=== PATIENT | female | born 1995 | race Caucasian/White ===

== ENCOUNTER 2016-12-17 16:15 | Emergency (ER) | payer SELFPAY ==
[2016-12-17 16:25] VITALS: BP 128/90
--- NOTE | 2016-12-17 16:58 | UC ---
UC General HPI - HPI Summary HPI Summary: complaint of jaw pain that started 3 months ago started a muscle relaxer which worked for over 1 month never followed up with PCP -but owes co-pay this flare up started 4 days ago pain in right side of jaw took some tylenol without relief pain increases with movement of her jaw, chewing and when she wakes up in the morning - History of Current Complaint Chief Complaint: UCUpperExtremity Stated Complaint: JAW PAIN Time Seen by Provider: 12/17/16 16:48 Hx Obtained From: Patient Associated Signs & Symptoms: Positive: Headache - Allergy/Home Medications Allergies/Adverse Reactions: Allergies Allergy/AdvReac Type Severity Reaction Status Date / Time Latex Allergy Rash And Verified 12/17/16 16:25 Itching PMH/Surg Hx/FS Hx/Imm Hx Previously Healthy: Yes Endocrine History Of: Denies: Thyroid Disease Cardiovascular History Of: Denies: Cardiac Disorders Respiratory History Of: Denies: Asthma Psychological History Of: Reports: Anxiety, Depression, Bipolar Disorder - Surgical History Surgical History: Yes Surgery Procedure, Year, and Place: appy age 6. Dental - Family History Known Family History: Positive: Hypertension Negative: Cardiac Disease, Diabetes - Social History Occupation: Employed Full-time Alcohol Use: Rare Substance Use Type: Marijuana Substance Use Comment - Amount & Last Used: occasionally Smoking Status (MU): Light Every Day Tobacco Smoker Type: Cigarettes Household Exposure Type: Cigarettes Cessation Counseling: Patient Advised to Stop Review of Systems Constitutional: Negative Skin: Negative Eyes: Negative ENT: Other - jaw pain Respiratory: Negative Cardiovascular: Negative Gastrointestinal: Negative Genitourinary: Negative Motor: Negative Neurovascular: Negative Musculoskeletal: Negative Neurological: Negative Psychological: Negative All Other Systems Reviewed And Are Negative: Yes Physical Exam Triage Information Reviewed: Yes Appearance: Pain Distress, Thin Vital Signs: Initial Vital Signs Temp 98.4 F 12/17/16 16:20 Pulse 84 12/17/16 16:20 Resp 18 12/17/16 16:20 BP 128/90 12/17/16 16:20 Pulse Ox 100 12/17/16 16:20 Vital Signs Reviewed: Yes Eyes: Positive: Conjunctiva Clear ENT: Positive: Pharynx normal, TMs normal. Negative: Nasal congestion Dental: Positive: Other: - TMJ pain with movement. Negative: Gross Decay/ Caries @, Dental Fracture @, Abscess @ Neck: Positive: No Lymphadenopathy Respiratory: Positive: Lungs clear, Normal breath sounds, No respiratory distress Cardiovascular: Positive: RRR, No Murmur Abdomen Description: Positive: Nontender, Soft Bowel Sounds: Positive: Present Musculoskeletal: Positive: No Edema Neurological: Positive: Alert Psychological Exam: Normal Skin Exam: Normal Course/Dx - Course Course Of Treatment: will continue muscle relaxer until she can get followup with PCP - Differential Dx - Multi-Symptom Differential Diagnoses: Other - dentral caries, fractured tooth, TMJ Provider Diagnoses: TMJ Discharge - Discharge Plan Condition: Stable Disposition: HOME Prescriptions: Cyclobenzaprine TAB* [Flexeril TAB*] 10 mg PO BEDTIME #30 tab Patient Education Materials: Temporomandibular Disorder (ED) Additional Instructions: start taking flexeril QHS do not operate heavy machinery or drink alcohol while on flexeril continue to wear mouthguard at night take acetaminophen or ibuprofen for pain as needed make followup appt with primary care physician for followup
== END 2016-12-17 17:10 | disposition home or self-care (01) ==
LOC: UCEAST 16:15
DX: M26.609 Unspecified temporomandibular joint disorder, unspecified side (principal); R51 Headache; F12.90 Cannabis use, unspecified, uncomplicated; F17.210 Nicotine dependence, cigarettes, uncomplicated
CPT/HCPCS: 99212; G0463

== ENCOUNTER 2017-05-06 13:15 | Emergency (ER) | payer BC, OTHER ==
[2017-05-06 15:16] VITALS: BP 124/54
--- NOTE | 2017-05-06 18:59 | ED ---
Stephanie Davis Edward, scribed for Jono Bolanos MD on 05/06/17 at 1417 . Syncope/Near Syncope - HPI Summary HPI Summary: A 21 y/o female presents to ED s/p syncopal episode with LOC at work. Patient is 19 weeks , and this is her first . Last seen by OB-ASSET PROTECTION DETECTIVE at 15 weeks. Pt denies injury during syncopal episode as her coworker caught her as she fell. 3rd episode over the past 3 days; previous 2x occurred at home. 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 PMHx: anxiety, but is anxiety med non- compliant since the . - History Of Current Complaint Chief Complaint: EDSyncope Time Seen by Provider: 05/06/17 13:49 Hx Obtained From: Patient Onset/Duration: Sudden Onset, Resolved Timing: Frequency Of Episodes - 3 times in past 3 days Context: Witnessed - Caught by coworker today., Loss Of Consciousness Activity At Onset: Other - Working. Associated Head Trauma: No Aggravating Factor(s): Other - Heat - Allergies/Home Medications Allergies/Adverse Reactions: Allergies Allergy/AdvReac Type Severity Reaction Status Date / Time Latex Allergy Rash And Verified 05/06/17 14:26 Itching PMH/Surg Hx/FS Hx/Imm Hx Previously Healthy: No Endocrine/Hematology History: Denies: Hx Thyroid Disease Respiratory History: Denies: Hx Asthma Psychiatric History: Reports: Hx Anxiety - Has not taken medications since , Hx Eating Disorder, Hx Depression, Hx Bipolar Disorder - Surgical History Surgery Procedure, Year, and Place: appy age 6. 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 Denies: Traveled Outside the [place] in Last 30 Days - Family History Known Family History: Positive: Hypertension Negative: Cardiac Disease, Diabetes - Social History Occupation: Employed Full-time Lives: Alone Alcohol Use: Rare Hx Substance Use: Yes Substance Use Type: Reports: Marijuana Substance Use Comment - Amount & Last Used: occasionally Hx Tobacco Use: Yes Smoking Status (MU): Light Every Day Tobacco Smoker Type: Cigarettes Review of Systems Constitutional: Negative Negative: Fever Eyes: Negative ENT: Negative Cardiovascular: Negative Respiratory: Negative Gastrointestinal: Negative Genitourinary: Negative Musculoskeletal: Negative Skin: Negative Positive: Syncope - 3 times in past 3 days Psychological: Normal All Other Systems Reviewed And Are Negative: Yes Physical Exam Triage Information Reviewed: Yes Vital Signs On Initial Exam: Initial Vitals Temp Pulse Resp BP Pulse Ox 98.7 F 88 17 130/84 100 05/06/17 13:16 05/06/17 13:16 05/06/17 13:16 05/06/17 13:16 05/06/17 13:16 Vital Signs Reviewed: Yes Appearance: Positive: Well-Appearing, No Pain Distress Skin: Positive: Warm, Skin Color Reflects Adequate Perfusion - FLUSHED, Dry Head/Face: Positive: Normal Head/Face Inspection Eyes: Positive: Normal ENT: Positive: Normal ENT inspection Neck: Positive: Supple, Nontender Respiratory/Lung Sounds: Positive: Clear to Auscultation, Breath Sounds Present Cardiovascular: Positive: RRR. Negative: Murmur Abdomen Description: Positive: Nontender, Soft, Other: - GRAVID BELLY Bowel Sounds: Positive: Present Musculoskeletal: Positive: Normal Neurological: Positive: Normal Psychiatric: Positive: Normal, Affect/Mood Appropriate Diagnostics - Vital Signs Vital Signs Temp Pulse Resp BP Pulse Ox 05/06/17 13:16 98.7 F 88 17 130/84 100 - Laboratory Lab Statement: Any lab studies that have been ordered have been reviewed, and results considered in the medical decision making process. - EKG 14:09 EKG Interpretation: Normal Sinus Rhythm Re-Evaluation - Re-Evaluation 14:55 Re-Evaluation Time: 14:55 Course/Dx Course Of Treatment: Ofelia is close to her third trimester (although less than 21 weeks) and has been having some faiinting spells especially when she gets hot. Unfortunately she works in a hot kitchen. She was without C/O on arrival and her exam was fine. We talked about vagal episodes and the importance of lying on her side in advanced . - Diagnoses Provider Diagnoses: Vaso vagal episode, with complication Discharge - Discharge Plan Condition: Stable Disposition: HOME Patient Education Materials: Syncope (ED) Referrals: Hima Gifford MD [Primary Care Provider] - 3 Days (Please follow up in 2-3 days ) Additional Instructions: When feeling faint, lie on either side until feelings pass. The documentation as recorded by the Stephanie viera Edward accurately reflects the service I personally performed and the decisions made by , Jono Bolanos MD.
== END 2017-05-06 15:08 | disposition home or self-care (01) ==
LOC: ED 13:15
DX: O26.92 Pregnancy related conditions, unspecified, second trimester (principal); R55 Syncope and collapse; F17.210 Nicotine dependence, cigarettes, uncomplicated; Z3A.19 19 weeks gestation of pregnancy
CPT/HCPCS: 93005; 99283

== ENCOUNTER 2017-05-14 09:17 | Emergency (ER) | payer BC ==
[2017-05-14] MEDS ORDERED: NS 0.9% 1000 ML* 1,000 ML IV ONE (10:01)
[2017-05-14 10:36] LABS: Hematocrit 33 % (35-47); Hemoglobin 11.4 g/dl (12.0-16.0); Mean Corpuscular HGB Conc 34 g/dl (31-36); Mean Corpuscular Hemoglobin 32 pg (27-31); Mean Corpuscular Volume 92 fL (80-97); Mean Platelet Volume 8 um3 (7.4-10.4); Red Blood Count 3.61 10^6/ul (4.0-5.4); Red Cell Distribution Width 14 % (10.5-15); White Blood Count 8.5 10^3/ul (3.5-10.8)
[2017-05-14 10:58] LABS: ALT 10 U/L (7-52); AST 10 U/L (13-39); Albumin 3.6 g/dL (3.2-5.2); Alkaline Phosphatase 41 U/L (34-104); Blood Urea Nitrogen 4 mg/dL (6-24); C Reactive Protein 7.25 mg/L (< 5.00); CO2 Carbon Dioxide 24 mmol/L (22-32); Calcium 8.6 mg/dL (8.6-10.3); Chloride 122 mmol/L (101-111); EGFR African American 198.4 (>60); EGFR Non-African American 154.3 (>60); Globulin 2.4 g/dL (2-4); Glucose 82 mg/dL (70-100); Lipase < 10 U/L (11.0-82.0); Potassium 3.9 mmol/L (3.5-5.0)
[2017-05-14 11:21] LABS: Anion Gap 7 mmol/L (2-11); Sodium 138 mmol/L (133-145)
[2017-05-14 13:16] LABS: Urine Bilirubin Negative (Negative); Urine Glucose Negative (Negative); Urine Nitrite Negative (Negative)
[2017-05-14 13:23] VITALS: BP 122/64
--- NOTE | 2017-05-14 14:22 | ED ---
Radha Davis Salem, scribed for Kaleb Tyson MD on 05/14/17 at 1111 . Abdominal Pain/Female - HPI Summary HPI Summary: Patient is a 21 y/o F (21 weeks ) who presents to the ED with abd pain, primarily right sided, since 3 days ago. She reports bloody diarrhea and cramping that does not correspond with onset of D. Most recent D was this morning and it was bloody (she typically has 2/day, but only its only been bloody 3 times). She also reports a headache, loss of appetite, and nausea in the morning, but denies fever, vaginal bleeding, or any pain. Pt denies any recent travel or PO intake of atypical foods. Pt states that she can still feel her baby in her abd and she reports AB negative blood type. - History of Current Complaint Chief Complaint: EDAbdPain Stated Complaint: 21WKS PREG/BLOOD IN STOOL Time Seen by Provider: 05/14/17 10:21 Hx Obtained From: Patient, Family/Calibration Tester Hx Last Menstrual Period: 11/20/16 Onset/Duration: Gradual Onset, Lasting Days, Still Present Timing: Intermittent Episode Lasting Severity Initially: Moderate Severity Currently: Moderate Pain Intensity: 2 Pain Scale Used: 0-10 Numeric Location: Discrete At: RUQ, Discrete At: RLQ Radiates: No Character: Cramping Aggravating Factor(s): Nothing Alleviating Factor(s): Nothing Associated Signs and Symptoms: Positive: Negative Allergies/Adverse Reactions: Allergies Allergy/AdvReac Type Severity Reaction Status Date / Time Latex Allergy Rash And Verified 05/14/17 09:19 Itching PMH/Surg Hx/FS Hx/Imm Hx Endocrine/Hematology History: Denies: Hx Thyroid Disease Respiratory History: Denies: Hx Asthma Psychiatric History: Reports: Hx Anxiety - Has not taken medications since , Hx Eating Disorder, Hx Depression, Hx Bipolar Disorder - Surgical History Surgery Procedure, Year, and Place: appy age 6. 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 Negative: Cardiac Disease, Diabetes - Social History Alcohol Use: None Alcohol Amount: none since Hx Substance Use: Yes Substance Use Type: Reports: Marijuana Substance Use Comment - Amount & Last Used: occasionally Hx Tobacco Use: Yes Smoking Status (MU): Light Every Day Tobacco Smoker Type: Cigarettes Review of Systems Positive: Other - No pain. . Negative: Fever Positive: Abdominal Pain, Diarrhea - Bloody. , Nausea, Other - Loss of appetite. Genitourinary: Other - No vaginal bleeding. Neurological: Other - Pt has been dizzy for 2 weeks. Was seen in ED last week and followed up with TAILOR'S AIDE. Positive: Headache All Other Systems Reviewed And Are Negative: Yes Physical Exam - Summary Physical Exam Summary: The patient is well-nourished in no acute distress and in no acute pain. Pale. The skin is warm and dry and skin color reflects adequate perfusion. HEENT: The head is normocephalic and atraumatic. The pupils are equal and reactive. The conjunctivae are clear and without drainage. Neck is supple with full range of motion and non-tender. Respiratory: Chest is non-tender. Lungs are clear to auscultation and breath sounds are symmetrical and equal. Cardiovascular: Hear is regular rate and rhythm. There is no murmur or rub auscultated. Abdomen: The abdomen is soft. Gravid. No reproducible pain. Musculoskeletal: There is no back pain noted. Extremities are non-tender with full range of motion. There is good capillary refill. Neurological: Patient is alert and oriented to person, place and time. The patient has symmetrical motor strength in all four extremities. Psychiatric: The patient has an appropriate affect and does not exhibit any anxiety or depression. Flat affect. Rectal exam: No hemorrhoids, fissure, or skin tags. Internal exam: brownish stool sent to lab for analysis. (Brand Marketing Coordinator: VERO Bennett) Triage Information Reviewed: Yes Vital Signs On Initial Exam: Initial Vitals Temp Pulse Resp BP Pulse Ox 98.1 F 99 20 129/76 100 05/14/17 09:19 05/14/17 09:19 05/14/17 09:19 05/14/17 09:19 05/14/17 09:19 Vital Signs Reviewed: Yes - [place] Coma Scale Coma Scale Total: 15 Diagnostics - Vital Signs Vital Signs Temp Pulse Resp BP Pulse Ox 05/14/17 10:30 78 109/56 99 05/14/17 10:00 77 115/62 98 05/14/17 09:35 81 99 05/14/17 09:34 114/71 05/14/17 09:21 98.1 F 99 20 129/76 99 05/14/17 09:19 98.1 F 99 20 129/76 100 - Laboratory Lab Results: Lab Results 05/14/17 05/14/17 05/14/17 Range/Units 10:24 10:24 10:24 WBC 8.5 (3.5-10.8) 10^3/ul RBC 3.61 L (4.0-5.4) 10^6/ul Hgb 11.4 L (12.0-16.0) g/dl Hct 33 L (35-47) % MCV 92 (80-97) fL MCH 32 H (27-31) pg MCHC 34 (31-36) g/dl RDW 14 (10.5-15) % Plt Count 188 (150-450) 10^3/ul MPV 8 (7.4-10.4) um3 Neut % (Auto) 74.6 (38-83) % Lymph % (Auto) 19.6 L (25-47) % Garden % (Auto) 4.8 (1-9) % Eos % (Auto) 0.6 (0-6) % Baso % (Auto) 0.4 (0-2) % Absolute Neuts (auto) 6.4 (1.5-7.7) 10^3/ul Absolute Lymphs (auto) 1.7 (1.0-4.8) 10^3/ul Absolute Monos (auto) 0.4 (0-0.8) 10^3/ul Absolute Eos (auto) 0.1 (0-0.6) 10^3/ul Absolute Basos (auto) 0 (0-0.2) 10^3/ul Absolute Nucleated RBC 0 10^3/ul Nucleated RBC % 0 Sodium Pending Potassium 3.9 (3.5-5.0) mmol/L Chloride 122 H (101-111) mmol/L Carbon Dioxide 24 (22-32) mmol/L Anion Gap Pending BUN 4 L (6-24) mg/dL Creatinine 0.50 L (0.51-0.95) mg/dL Est GFR ( Amer) 198.4 (>60) Est GFR (Non-Af Amer) 154.3 (>60) BUN/Creatinine Ratio 8.0 (8-20) Glucose 82 (70-100) mg/dL Lactic Acid 0.7 (0.5-2.0) mmol/L Calcium 8.6 (8.6-10.3) mg/dL Total Bilirubin 0.50 (0.2-1.0) mg/dL AST 10 L (13-39) U/L ALT 10 (7-52) U/L Alkaline Phosphatase 41 (34-104) U/L C-Reactive Protein 7.25 H (< 5.00) mg/L Total Protein 6.0 L (6.4-8.9) g/dL Albumin 3.6 (3.2-5.2) g/dL Globulin 2.4 (2-4) g/dL Albumin/Globulin Ratio 1.5 (1-3) Lipase < 10 L (11.0-82.0) U/L Result Diagrams: 05/14/17 10:24 05/14/17 10:24 Lab Statement: Any lab studies that have been ordered have been reviewed, and results considered in the medical decision making process. Re-Evaluation - Re-Evaluation First Eval Re-Evaluation Time: 14:06 Comment: Reviewed results with pt. She was upset. Discussed plan. Abdominal Pain Fem Course/Dx - Course Course Of Treatment: 21 y/o F who presents with abd pain. She reports bloody diarrhea, cramping, a headache, loss of appetite, and nausea in the morning, but denies fever, vaginal bleeding, or any pain. She received fluids in the ED course. Pt will follow up with TAILOR'S AIDE. - Diagnoses Differential Diagnosis: Positive: , Other - gi bleed via history, colitis, infectious diarrhea Provider Diagnoses: with 21 completed weeks gestation, GI bleed via history Discharge - Discharge Plan Condition: Stable Disposition: HOME Patient Education Materials: (ED), Gastrointestinal Bleeding (ED) Referrals: Balta SERRANO,Hima Chavez [Primary Care Provider] - Guillermo Walsh MD [Medical Doctor] - Additional Instructions: Please follow up with your TAILOR'S AIDE. The documentation as recorded by the Radha viera Salem accurately reflects the service I personally performed and the decisions made by , Kaleb Tyson MD.
== END 2017-05-14 14:10 | disposition home or self-care (01) ==
LOC: ED 09:17
DX: K92.2 Gastrointestinal hemorrhage, unspecified (principal); R10.9 Unspecified abdominal pain; Z34.92 Encounter for supervision of normal pregnancy, unspecified, second trimester; R19.7 Diarrhea, unspecified; R11.0 Nausea; R63.0 Anorexia
CPT/HCPCS: 36415; 80053; 81003; 82272; 83605; 83690; 85025; 86140; 96360; 99283

== ENCOUNTER 2017-08-30 12:30 | Inpatient (IN) | payer BC ==
[2017-08-30 13:22] LABS: Hematocrit 38 % (35-47); Hemoglobin 12.8 g/dl (12.0-16.0); Mean Corpuscular HGB Conc 34 g/dl (31-36); Mean Corpuscular Hemoglobin 32 pg (27-31); Mean Corpuscular Volume 95 fL (80-97); Mean Platelet Volume 9 um3 (7.4-10.4); Red Blood Count 4.01 10^6/ul (4.0-5.4); Red Cell Distribution Width 13 % (10.5-15); White Blood Count 8.1 10^3/ul (3.5-10.8)
[2017-08-30 13:37] LABS: Albumin 2.9 g/dL (3.2-5.2); BUN/Creatinine Ratio 14.9 (8-20); Calcium 8.1 mg/dL (8.6-10.3); EGFR African American 126.2 (>60); EGFR Non-African American 98.1 (>60); Globulin 2.5 g/dL (2-4); Total Bilirubin 0.5 mg/dL (0.2-1.0); Total Protein 5.4 g/dL (6.4-8.9); Uric Acid 5.2 mg/dL (2.3-6.6)
[2017-08-30 13:42] LABS: Fibrinogen 300 mg/dL (110.8-404.3)
[2017-08-30] MEDS ORDERED: Labetalol IV* 5 MG/ML 20 ML VIAL ONE (13:56)
[2017-08-30 14:14] LABS: Schistocytes ABSENT
[2017-08-30] MEDS ORDERED: Labetalol IV* 5 MG/ML 20 ML VIAL IV PUSH ONE ×2 (14:41→14:50)
[2017-08-30 14:46] LABS: Urine Bacteria Absent (Absent); Urine Bilirubin Negative (Negative); Urine Glucose Negative (Negative); Urine Nitrite Negative (Negative)
[2017-08-30] MEDS ORDERED: Oxytocin in LR* 20 UNITS/1,000 ML BAG IVPB SCH ×2 (15:00→23:00)
[2017-08-30] MEDS ORDERED: Magnesium Sulf 4 GM/100 ML IV* 4,000 MG/100 ML BAG IVPB ONE ×2 (15:08→15:09)
[2017-08-30] MEDS ORDERED: Betamethasone INJ* 6 MG/ML 5 ML VIAL (30 MG) IM ONE (15:12)
[2017-08-30] MEDS ORDERED: Magnesium Sulfate OB PREMIX* 40 GM/1,000 ML BAG IVPB SCH ×2 (16:00→23:00)
[2017-08-30] MEDS ORDERED: OBEPIDURAL* 250 ML ONE (17:43)
[2017-08-30] MEDS ORDERED: Phenylephrine IV* 40 MCG/ML 10 ML SYRINGE IV PUSH PRN ×2 (18:27)
[2017-08-30] MEDS ORDERED: Sodium Citrate/Citric Acid* 15 ML UDC PO PRN (18:27)
[2017-08-30] MEDS ORDERED: OBEPIDURAL* 250 ML EPIDURAL SCH (19:00)
[2017-08-30] MEDS ORDERED: Dibucaine 1% 28.35 GM TUBE ONE (19:10)
[2017-08-30] MEDS ORDERED: Witch Hazel PAD* JAR TOPICAL PRN (22:16)
[2017-08-30] MEDS ORDERED: Dibucaine 1% 28.35 GM TUBE PR PRN (22:16)
[2017-08-30] MEDS ORDERED: Glycerin ADULT SUPP PR PRN (22:16)
[2017-08-30] MEDS ORDERED: Varicella Virus Vaccine Live* 0.5 ML VIAL SUBCUT ONE (22:16)
[2017-08-30] MEDS ORDERED: RHO D Immune Globulin (HUMAN)* 300 MCG = 1,500 I.U. INJ IM ONE (22:16)
[2017-08-31] MEDS: Ibuprofen TAB* 600 MG PO PRN ×2 (00:41→07:51)
[2017-08-31] MEDS ORDERED: Oxytocin in LR* 20 UNITS/1,000 ML BAG IVPB SCH (07:07)
[2017-08-31 07:39] LABS: Hematocrit 34 % (35-47); Hemoglobin 11.6 g/dl (12.0-16.0); Mean Corpuscular HGB Conc 34 g/dl (31-36); Mean Corpuscular Hemoglobin 32 pg (27-31); Mean Corpuscular Volume 94 fL (80-97); Mean Platelet Volume 9 um3 (7.4-10.4); Red Blood Count 3.67 10^6/ul (4.0-5.4); Red Cell Distribution Width 13 % (10.5-15); White Blood Count 20.2 10^3/ul (3.5-10.8)
[2017-08-31] MEDS: Docusate CAP* 100 MG PO SCH ×3 (07:52→21:14)
[2017-08-31] MEDS ORDERED: Simethicone TAB* 80 MG TAB.CHEW PO SCH (08:30)
[2017-08-31] MEDS ORDERED: Ferrous Gluconate TAB* 324 MG TAB PO SCH (09:00)
[2017-08-31] MEDS ORDERED: Labetalol IV* 5 MG/ML 20 ML VIAL IV PUSH ONE ×3 (09:41→22:00)
[2017-08-31] MEDS ORDERED: Labetalol TAB* 100 MG ONE (10:13)
[2017-08-31] MEDS ORDERED: Labetalol TAB* 100 MG PO SCH ×2 (10:13→21:00)
[2017-08-31] MEDS ORDERED: Labetalol IV* 5 MG/ML 20 ML VIAL ONE (12:42)
[2017-08-31] MEDS: Labetalol IV* 5 MG/ML 20 ML VIAL IV PUSH ONE ×2 (15:05→21:09)
[2017-09-01] MEDS ORDERED: Labetalol TAB* 100 MG PO SCH ×3 (01:00→05:47)
[2017-09-01] MEDS ORDERED: hydrALAZINE IV* 20 MG/ML VIAL IV SLOW PU ONE (05:45)
[2017-09-01] MEDS ORDERED: hydrALAZINE IV* 20 MG/ML VIAL ONE (05:45)
[2017-09-01] MEDS: Labetalol TAB* 100 MG PO SCH ×3 (07:14→20:36)
[2017-09-01] MEDS ORDERED: fentaNYL* 50 MCG/ML 2 ML VIAL (100 MCG VIAL) ONE (07:25)
[2017-09-01 07:31] LABS: Albumin 2.3 g/dL (3.2-5.2); BUN/Creatinine Ratio 22.2 (8-20); Calcium 6.8 mg/dL (8.6-10.3); EGFR African American 181.6 (>60); EGFR Non-African American 141.2 (>60); Globulin 1.9 g/dL (2-4); Total Bilirubin 0.2 mg/dL (0.2-1.0); Total Protein 4.2 g/dL (6.4-8.9)
[2017-09-01] MEDS ORDERED: Ibuprofen TAB* 600 MG ONE ×2 (07:51→14:00)
[2017-09-01] MEDS: Docusate CAP* 100 MG PO SCH ×3 (09:24→20:36)
[2017-09-02] MEDS: Acetaminophen TAB* 325 MG PO PRN ×2 (08:49→20:29)
[2017-09-02] MEDS: Labetalol TAB* 200 MG PO SCH ×3 (08:49→20:29)
[2017-09-02] MEDS: Docusate CAP* 100 MG PO SCH ×3 (08:49→20:29)
[2017-09-02] MEDS: NIFEdipine ER TAB* 30 MG PO SCH (12:31)
[2017-09-03] MEDS: Docusate CAP* 100 MG PO SCH ×2 (09:28→14:44)
[2017-09-03] MEDS: NIFEdipine ER TAB* 30 MG PO SCH (09:28)
[2017-09-03] MEDS: Labetalol TAB* 200 MG PO SCH ×2 (09:28→14:43)
[2017-09-03 15:42] VITALS: BP 151/89
== END 2017-09-03 17:08 | disposition home or self-care (01) | DRG 560 ==
LOC: MCHOBOUT 12:30 → MCHOB 15:04
PROVIDERS: ADMIT Obstetrics & Gynecology; ATTEND Obstetrics & Gynecology
PROC: 3E0P3VZ Introduction of Hormone into Female Reproductive, Percutaneous Approach (ICD-10-PCS; principal; 2017-08-30)
PROC: 10907ZC Drainage of Amniotic Fluid, Therapeutic from Products of Conception, Via Natural or Artificial Opening (ICD-10-PCS; 2017-08-30)
PROC: 10E0XZZ Delivery of Products of Conception, External Approach (ICD-10-PCS; 2017-08-30)
PROC: 0HQ9XZZ Repair Perineum Skin, External Approach (ICD-10-PCS; 2017-08-30)
PROC: 4A1HXCZ Monitoring of Products of Conception, Cardiac Rate, External Approach (ICD-10-PCS; 2017-08-30)
DX: O14.14 Severe pre-eclampsia complicating childbirth (principal); F17.200 Nicotine dependence, unspecified, uncomplicated; Z91.040 Latex allergy status; Z3A.36 36 weeks gestation of pregnancy; O99.334 Smoking (tobacco) complicating childbirth; O70.0 First degree perineal laceration during delivery; O43.893 Other placental disorders, third trimester; Z37.0 Single live birth
CPT/HCPCS: 36415; 80053; 81003; 81015; 82150; 83690; 84550; 85025; 85049; 85362; 85384; 85610; 85730; 86850; 86870; 86880; 86900; 86901; 87086; 88307; A9270-GY; J0360; J0702; J3010